=== PATIENT | male | born 1985 | race Caucasian/White ===

== ENCOUNTER 2016-05-03 21:45 | Emergency (ER) | payer OTHER, MEDICAID ==
[2016-05-03 21:57] VITALS: BP 149/91; PULSE 83; RESP 20; TEMP 98.8; O2SAT 93
--- NOTE | 2016-05-03 22:27 | EDPHY ---
H & P Stated Complaint: n/v, blood in stool Time Seen by Provider: 05/03/16 22:15 HPI/ROS: Chief complaint: Blood in stool, nausea, vomiting HPI: 31-year-old male with history of anxiety, schizoaffective disorder bipolar disorder presenting complaining of blood in his stool. Patient states for the last 2 days he has had some intermittent nausea and vomiting with some loose stools. Tonight he had 2 bowel movements with loose stools with blood in the toilet water. He has also been having some rectal discomfort last couple of days. He states he has a history of chronic nausea wakes up most morning still nauseated. He attributes this to his chronic medications. Denies any fevers or chills. No chest pain or shortness of breath. Some mild abdominal cramping but no pain. States that he is compliant with medications. Has a history of having blood in his stool in his past but has not seen his doctor for this. ROS: 10 point Review of Systems is negative except as noted in the HPI. Past medical history: Bipolar disorder, schizoaffective disorder, anxiety Social history: Positive for smoking, denies alcohol or other recreational drugs Physical exam: Gen: Awake, Alert, No Distress HEENT: Ears: Bilateral TMs are normal, no erythema or bulging. External auditory canals are clear. Nose: no rhinorrhea Eyes: PERRLA, EOMI Mouth: Moist mucosa Neck: Supple, no JVD Chest: nontender, lungs clear to auscultation Heart: S1, S2 normal, no murmur Abd: Soft, non-tender, no guarding Rectal: He does have visible hemorrhoids with no active bleeding, digital rectal exam is declined Back: no CVA tenderness, no midline tenderness Ext: no edema, non-tender Skin: no rash Neuro: CN II-XII intact, Sensation grossly intact, Strength 5/5 in bilateral upper and lower extremities - Personal History Tetanus Vaccine Date: 2014 - Medical/Surgical History Hx Asthma: Yes Hx Chronic Respiratory Disease: No Hx Diabetes: No Hx Cardiac Disease: No Hx Renal Disease: No Hx Cirrhosis: No Hx Alcoholism: Yes Hx HIV/AIDS: No Hx Splenectomy or Spleen Trauma: No Other PMH: BIPOLAR, ANXIETY, OCD, SCHIZOPREHIA, R. ankle fx, L. lower extremity fx. - Social History Smoking Status: Heavy smoker Constitutional: Initial Vital Signs Temperature (C) 37.1 C 05/03/16 21:55 Heart Rate 83 05/03/16 21:55 Respiratory Rate 20 05/03/16 21:55 Blood Pressure 149/91 H 05/03/16 21:55 O2 Sat (%) 93 05/03/16 21:55 O2 Delivery Mode Room Air Allergies/Adverse Reactions: bupropion HCl [From Wellbutrin] Allergy (Verified 05/03/16 21:55) Rash clozapine [From Clozaril] Allergy (Verified 05/03/16 21:55) Home Medications: Medication Instructions Recorded Atenolol [Tenormin] 25 mg PO BID 05/06/11 [place] Carbonate [[place] 900 mg PO BID 05/06/11 Carbonate Tab 300 mg (*)] OLANZAPINE [ZYPREXA 20 mg] 40 mg PO DAILY 05/06/11 QUETIAPINE FUMARATE [Seroquel] 50 mg PO TID 05/06/11 QUETIAPINE FUMARATE [Seroquel] 100 mg PO HS 05/06/11 Klonopin (RX) 12/11/12 Nexium 12/11/12 Albuterol 5 mg/ml INH [Proventil] 5 mg IH Q2-3PRN PRN #1 btl 03/13/13 Albuterol Hfa Anes Only [Proair 2 puffs IH QID #1 mdi 05/09/15 Hfa Icu (*)] Phenylephrine/Shk Lv/Mo/Pet,Wh 28 gm RC QID #1 ointtube 05/03/16 [Preparation H Oint] Medical Decision Making ED Course/Re-evaluation: Healthy 31-year-old male with rectal discomfort, loose stools and 2 episodes of blood in his stool this evening. He is hemodynamically normal. He is otherwise well-appearing. Abdominal exam is soft and benign. He is not feeling lightheaded or syncopal. He does have hemorrhoids as a source of bleeding. There is no other evidence of acute active GI bleed. He is also complaining of worsening nausea for the last couple of days with vomiting. Will give him a to go pack of Zofran, instructions for Sitz bath as and Anusol. He will follow up with his physician, Dr. Mendoza and 3 or 4 days for re- evaluation. Departure - Departure Disposition: Home, Routine, Self-Care Clinical Impression: Vomiting, Hemorrhoids Condition: Good Instructions: Hemorrhoids (ED), Acute Nausea and Vomiting (ED) Additional Instructions: Follow up with primary care physician on Friday. Return emergency depart for increasing bleeding, pain, worsening nausea, vomiting, abdominal pain, or any other concerns. Referrals: Alexus Mendoza MD [Primary Care Provider] - As per Instructions Prescriptions: Phenylephrine/Shk Lv/Mo/Pet,Wh [Preparation H Oint] 28 gm RC QID #1 ointtube
[2016-05-03] MEDS ORDERED: ONDANSETRON 4MG PREPACK#2 BTL TAKEHOME ONE (22:31)
== END 2016-05-03 22:42 | disposition home or self-care (01) ==
DX: K64.9 Unspecified hemorrhoids (principal); R11.10 Vomiting, unspecified; F17.200 Nicotine dependence, unspecified, uncomplicated; J45.909 Unspecified asthma, uncomplicated

== ENCOUNTER 2016-05-26 21:37 | Emergency (ER) | payer OTHER, MEDICAID ==
[2016-05-26 21:52] VITALS: BP 133/87; PULSE 79; RESP 16; TEMP 98.8; O2SAT 95
--- NOTE | 2016-05-26 22:21 | EDPHY ---
H & P Smoking Status: Heavy smoker Time Seen by Provider: 05/26/16 22:10 HPI/ROS: CHIEF COMPLAINT: Right calf pain x4 hours HISTORY OF PRESENT ILLNESS: 31-year-old male with no prior history of thromboembolic disorder complaining of 4 hours of atraumatic right calf pain and cramping. Call sooner sign recommended he come to the ER for evaluation. No discoloration. He was not performing physical activity when this occurred. No back pain. normal temperature. No chest pain. No dyspnea. PHYSICAL EXAM (Prior to examination, patient consented to physical exam, hands were washed and my usual and customary physical exam procedures followed) 1) GENERAL: Well-developed, well-nourished, alert and oriented. Appears to be in no acute distress. 2) HEAD: Normocephalic 3) HEENT: sclera anicteric 4) LUNGS: Breathing comfortably. 5) SKIN: normal coloration 6) MUSCULOSKELETAL: right lower extremity has no asymmetry, no tenderness, negative Homans, no palpable cord, soft compartments, DP PT pulses present and brisk, normal color normal temperature distally and the remainder of the lower extremity. 7) NEUROLOGIC: Full sensation distally DIFFERENTIAL DIAGNOSIS: in no particular include but limited to compartment syndrome, DVT, arterial thrombus, cellulitis, muscle strain (Evelyne,Bertha Danisha) Constitutional: Initial Vital Signs Temperature (C) 37.1 C 05/26/16 21:48 Heart Rate 79 05/26/16 21:48 Respiratory Rate 16 05/26/16 21:48 Blood Pressure 133/87 H 05/26/16 21:48 O2 Sat (%) 95 05/26/16 21:48 O2 Delivery Mode Room Air Allergies/Adverse Reactions: bupropion HCl [From Wellbutrin] Allergy (Verified 05/03/16 21:55) Rash clozapine [From Clozaril] Allergy (Verified 05/03/16 21:55) Home Medications: Medication Instructions Recorded Atenolol [Tenormin] 25 mg PO BID 05/06/11 [place] Carbonate [[place] 900 mg PO BID 05/06/11 Carbonate Tab 300 mg (*)] OLANZAPINE [ZYPREXA 20 mg] 40 mg PO DAILY 05/06/11 QUETIAPINE FUMARATE [Seroquel] 50 mg PO TID 05/06/11 QUETIAPINE FUMARATE [Seroquel] 100 mg PO HS 05/06/11 Klonopin (RX) 12/11/12 Nexium 12/11/12 Albuterol 5 mg/ml INH [Proventil] 5 mg IH Q2-3PRN PRN #1 btl 03/13/13 Albuterol Hfa Anes Only [Proair 2 puffs IH QID #1 mdi 05/09/15 Hfa Icu (*)] Phenylephrine/Shk Lv/Mo/Pet,Wh 28 gm RC QID #1 ointtube 05/03/16 [Preparation H Oint] MDM/Departure - MDM Diagnostics: 10:55 p.m.: Ultrasound lower extremity negative for DVT interpreted by radiologist. Images reviewed by myself. (Bertha Stubbs) ED Course/Re-evaluation: 10:50 p.m.: Re-evaluation. Patient is neurovascularly intact, soft compartments,. Normal coloration. Normal temperature. Doubt DVT. Doubt arterial occlusion. Doubt compartment syndrome. Plan will be discharge. Follow up with primary care provider. Usual and customary orthopedic precautions instructions provided. He feels comfortable being discharged. ( Bertha Stubbs) PHYSICIAN DOCUMENTATION: The patient was evaluated and managed by the Physician Storeroom Attendant. My co- signature indicates that I have reviewed this chart and I agree with the findings and plan of care as documented. I am the secondary supervising physician. (Chioma Chandra) - Depart Disposition: Home, Routine, Self-Care Clinical Impression: Right calf pain Condition: Good Instructions: Leg Cramps (ED) Additional Instructions: Call 911 if you developed worsening calf pain, if you develop discoloration or change in temperature of your extremity or any other symptoms that concern you. Referrals: Alexus Mendoza MD [Primary Care Provider] - 1-2 days without fail
== END 2016-05-26 23:06 | disposition home or self-care (01) ==
DX: M79.661 Pain in right lower leg (principal)

== ENCOUNTER 2016-06-30 10:18 | Inpatient (IN) | payer OTHER, MEDICAID ==
[2016-06-30] MEDS ORDERED: methylPREDNISolone SOD SUCC 125 MG/2 ML VIAL IVP ONE (10:24)
[2016-06-30] MEDS ORDERED: IPRATROPIUM/ALBUTEROL 3 ML DEYVIAL IH ONE (10:24)
--- NOTE | 2016-06-30 10:29 | EDPHY ---
H & P Source: Patient, EMS Exam Limitations: No limitations - Personal History Tetanus Vaccine Date: 2014 - Medical/Surgical History Hx Asthma: Yes Hx Chronic Respiratory Disease: No Hx Diabetes: No Hx Cardiac Disease: No Hx Renal Disease: No Hx Cirrhosis: No Hx Alcoholism: Yes Hx HIV/AIDS: No Hx Splenectomy or Spleen Trauma: No Other PMH: BIPOLAR, ANXIETY, OCD, SCHIZOPREHIA, R. ankle fx, L. lower extremity fx. - Social History Smoking Status: Heavy smoker HPI/ROS: CHIEF COMPLAINT: Shortness of breath, cough HISTORY OF PRESENT ILLNESS: Patient complains of cough, shortness of breath and wheezing. This started yesterday after cleaning his toilet with coring cleanser. He feels that it turned into infection after initial onset of coughing. Symptoms have been persistent. [id number]. Some hemoptysis. No abdominal pain. Some chest pain with this. Some shortness of breath. No fever. No headache. No neck pain or stiffness. He has also had some chronic, mild blood in the stools. No other associated complaints or modifying factors. He arrives by EMS and is seen at time of arrival. The administer DuoNeb but no other medications. He was reportedly 91% on room air. He was 96% during the breathing treatment on 8 L. REVIEW OF SYSTEMS: Ten systems reviewed and are negative unless otherwise noted in the HPI PERTINENT MEDICAL HISTORY: Asthma, smoker EXAMINATION General Appearance: Alert, no distress Head: normocephalic, atraumatic Eyes: Pupils equal and round, no conjunctival pallor or injection ENT, Mouth: Mucous membranes moist. Uvula midline. No erythema or edema. Neck: Normal inspection, supple, non-tender. No meningismus or rigidity Respiratory: Tachypneic. Scattered rhonchi and wheezing throughout. Minimal crackles. No retractions or distress. Cardiovascular: Tachycardic rate 104 beats per minute. Regular rhythm. No murmur. Gastrointestinal: obese Abdomen is soft and nontender. No tympany rigidity. Neurological: GCS 15. A&O, nonfocal, normal gait Skin: Warm and dry, no rash. No petechiae or purpura. Extremities: Nontender, no pedal edema Psychiatric: Mood and affect normal DIFFERENTIAL DIAGNOSES: Including but not limited to asthma exacerbation, community-acquired pneumonia, influenza, bronchitis, viral infection, PE MDM: 10:20 a.m. Shortness of breath, cough, hemoptysis. Patient arrived by EMS for reports of asthma exacerbation. He was tachycardic and tachypneic, thus I have ordered blood cultures, lactic acid, chest x-ray and influenza test. He is hemodynamically stable in no acute distress. 11:03 a.m. Chest x-ray as read by me is these more suggestive of bronchitis without definite pneumonia. Laboratory studies revealed leukocytosis. Lactic acid is upper limits of normal. Vital signs remained stable with mild hypoxia on room air. 11:30 a.m. Chest x-ray does not reveal a definite pneumonia. However, he is hypoxic on room air, the lowest value noted was 86%. He does have leukocytosis and mild tachycardia. He was also tachypnea time arrival. Examination is consistent with pneumonia. With his vital signs and findings, he does meet criteria for severe sepsis to the lactic acid greater than 2.0. There is no septic shock. Due to this, I will proceed with admission for asthma exacerbation with the possibility of atypical pneumonia. 11:30 a.m. I have discussed the case with the hospitalist and that. She will admit the patient to Dr. Vale. We will repeat lactic acid following the IV fluid bolus. SUPERVISION: (Ryder Murcia) Constitutional: Initial Vital Signs Temperature (C) 36.8 C 06/30/16 10:18 Heart Rate 102 H 06/30/16 10:18 Respiratory Rate 22 H 06/30/16 10:18 Blood Pressure 126/69 H 06/30/16 10:18 O2 Sat (%) 92 06/30/16 10:18 O2 Delivery Mode Room Air O2 (L/minute) 2 Allergies/Adverse Reactions: bupropion HCl [From Wellbutrin] Allergy (Verified 06/30/16 10:26) Rash clozapine [From Clozaril] Allergy (Verified 06/30/16 10:26) Home Medications: Medication Instructions Recorded Atenolol [Tenormin] 25 mg PO BID 05/06/11 [place] Carbonate [[place] 900 mg PO BID 05/06/11 Carbonate Tab 300 mg (*)] OLANZAPINE [ZYPREXA 20 mg] 40 mg PO DAILY 05/06/11 QUETIAPINE FUMARATE [Seroquel] 50 mg PO TID 05/06/11 QUETIAPINE FUMARATE [Seroquel] 100 mg PO HS 05/06/11 Klonopin (RX) 12/11/12 Nexium 12/11/12 Albuterol 5 mg/ml INH [Proventil] 5 mg IH Q2-3PRN PRN #1 btl 03/13/13 Albuterol Hfa Anes Only [Proair 2 puffs IH QID #1 mdi 05/09/15 Hfa Icu (*)] Phenylephrine/Shk Lv/Mo/Pet,Wh 28 gm RC QID #1 ointtube 05/03/16 [Preparation H Oint] AMITRIPTYLINE HCL 06/30/16 ANTABUSE 06/30/16 Trileptal 06/30/16 Zyprexa 06/30/16 Medical Decision Making - Diagnostics Imaging Results: Imaging Impressions Chest X-Ray 06/30/16 10:25 Impression: Findings consistent with airways disease are noted with no superimposed pneumonia identified. Other Provider: PHYSICIAN DOCUMENTATION: The patient was evaluated and managed by the Physician Associate Trainer. My co- signature indicates that I have reviewed this chart and I agree with the findings and plan of care as documented. I am the secondary supervising physician. (Alfonso Medley) - Data Points Laboratory Results: Laboratory Results 06/30/16 10:20 06/30/16 10:20 06/30/16 06/30/16 06/30/16 10:31 10:25 10:20 WBC RBC Hgb Hct MCV MCH MCHC RDW Plt Count MPV Neut % (Auto) Lymph % (Auto) [place] % (Auto) Eos % (Auto) Baso % (Auto) Nucleat RBC Rel Count Absolute Neuts (auto) Absolute Lymphs (auto) Absolute Monos (auto) Absolute Eos (auto) Absolute Basos (auto) Absolute Nucleated RBC Immature Gran % Immature Gran # PT INR APTT D-Dimer VBG Lactic Acid 2.1 mmol/L mmol/L (0.7-2.1) Sodium 137 mEq/L mEq/L (134-144) Potassium 4.4 mEq/L mEq/L (3.5-5.2) Chloride 105 mEq/L mEq/L (97-110) Carbon Dioxide 21 mEq/l L mEq/l (22-31) Anion Gap 11 mEq/L mEq/L (8-16) BUN 9 mg/dL mg/dL (7-23) Creatinine 1.1 mg/dL mg/dL (0.7-1.3) Estimated GFR > 60 Glucose 114 mg/dL H mg/dL (70-100) Calcium 10.0 mg/dL mg/dL (8.5-10.4) Total Bilirubin 0.7 mg/dL mg/dL (0.1-1.4) Troponin I < 0.012 ng/mL ng/mL (0-0.034) Influenza Typ A,B (DFA) NEGATIVE FOR FLU (NEGATIVE) 06/30/16 06/30/16 10:20 10:20 WBC 19.78 10^3/uL H 10^3/uL (3.80-9.50) RBC 5.08 10^6/uL 10^6/uL (4.40-6.38) Hgb 13.2 g/dL L g/dL (13.7-17.5) Hct 42.1 % % (40.0-51.0) MCV 82.9 fL fL (81.5-99.8) MCH 26.0 pg L pg (27.9-34.1) MCHC 31.4 g/dL L g/dL (32.4-36.7) RDW 16.7 % H % (11.5-15.2) Plt Count 273 10^3/uL 10^3/uL (150-400) MPV 10.4 fL fL (8.7-11.7) Neut % (Auto) 88.9 % H % (39.3-74.2) Lymph % (Auto) 2.8 % L % (15.0-45.0) [place] % (Auto) 5.8 % % (4.5-13.0) Eos % (Auto) 1.0 % % (0.6-7.6) Baso % (Auto) 0.4 % % (0.3-1.7) Nucleat RBC Rel Count 0.0 % % (0.0-0.2) Absolute Neuts (auto) 17.58 10^3/uL H 10^3/uL (1.70-6.50) Absolute Lymphs (auto) 0.56 10^3/uL L 10^3/uL (1.00-3.00) Absolute Monos (auto) 1.15 10^3/uL H 10^3/uL (0.30-0.80) Absolute Eos (auto) 0.20 10^3/uL 10^3/uL (0.03-0.40) Absolute Basos (auto) 0.08 10^3/uL 10^3/uL (0.02-0.10) Absolute Nucleated RBC 0.00 10^3/uL 10^3/uL (0-0.01) Immature Gran % 1.1 % % (0.0-1.1) Immature Gran # 0.21 10^3/uL H 10^3/uL (0.00-0.10) PT 12.5 SEC SEC (12.0-15.0) INR 0.94 (0.83-1.16) APTT 30.7 SEC SEC (23.0-38.0) D-Dimer < 0.27 ug/mLFEU ug/mLFEU (0.00-0.50) VBG Lactic Acid Sodium Potassium Chloride Carbon Dioxide Anion Gap BUN Creatinine Estimated GFR Glucose Calcium Total Bilirubin Troponin I Influenza Typ A,B (DFA) Medications Given: Discontinued Medications Albuterol/Ipratropium (Duoneb) 3 ml IH EDNOW ONE Stop: 06/30/16 10:25 Last Admin: 06/30/16 10:34 Dose: 3 ml Sodium Chloride (Ns) 1,000 mls @ 0 mls/hr IV ONCE ONE PRN Reason: Wide Open Stop: 06/30/16 11:04 Last Admin: 06/30/16 11:09 Dose: 1,000 mls Methylprednisolone Sodium Succinate (Solu-Medrol) 125 mg IVP EDNOW ONE Stop: 06/30/16 10:25 Last Admin: 06/30/16 10:35 Dose: 125 mg
[2016-06-30 10:35] LABS: % IMMATURE GRANULYOCYTES 1.1 % (0.0-1.1); ABSOLUTE IMMATURE GRANULOCYTES 0.21 10^3/uL (0.00-0.10); ADD DIFF? NO; ADD MORPH? NO; ADD SCAN? NO; ATYPICAL LYMPHOCYTE FLAG 0 (0-99); FRAGMENT RBC FLAG 0 (0-99); HEMATOCRIT 42.1 % (40.0-51.0); HEMOGLOBIN 13.2 g/dL (13.7-17.5); LEFT SHIFT FLG 10 (0-99); LIPEMIA HEMOLYSIS FLAG 80 (0-99); MEAN CELL HEMOGLOBIN CONCENTR. 31.4 g/dL (32.4-36.7); MEAN CELL VOLUME 82.9 fL (81.5-99.8); MEAN PLATELET VOLUME 10.4 fL (8.7-11.7); PLATELET CLUMPS FLAG 40 (0-99); PLATELET COUNT 273 10^3/uL (150-400); RED BLOOD CELL COUNT 5.08 10^6/uL (4.40-6.38); RED CELL DISTRIBUTION WIDTH 16.7 % (11.5-15.2)
--- NOTE | 2016-06-30 10:38 | CPEKG ---
Heart Rate: 98 RR Interval: 612 P-R Interval: 180 QRSD Interval: 94 QT Interval: 368 QTC Interval: 470 P Minetto: 73 QRS Minetto: 61 T Wave Minetto: 36 EKG Severity - BORDERLINE ECG - EKG Impression: SINUS RHYTHM Electronically Signed By: Alfonso Medley 30-Jun-2016 13:40:21
[2016-06-30 10:41] LABS: INR 0.94 (0.83-1.16); PROTIME(PATIENT) 12.5 SEC (12.0-15.0)
[2016-06-30 10:42] LABS: APTT 30.7 SEC (23.0-38.0)
[2016-06-30 10:54] LABS: ANION GAP 11 mEq/L (8-16); BILIRUBIN,TOTAL 0.7 mg/dL (0.1-1.4); CARBON DIOXIDE 21 mEq/l (22-31); CHLORIDE 105 mEq/L (97-110); CREATININE 1.1 mg/dL (0.7-1.3); GLOMERULAR FILTRATION RATE > 60; GLUCOSE 114 mg/dL (70-100); POTASSIUM 4.4 mEq/L (3.5-5.2); SODIUM 137 mEq/L (134-144)
[2016-06-30] MEDS ORDERED: NS 1,000 ML IV ONE ×2 (11:03→11:35)
[2016-06-30 11:05] LABS: TROPONIN I < 0.012 ng/mL (0-0.034)
[2016-06-30 11:35] LABS: LACGHOST ORDER
[2016-06-30] MEDS ORDERED: AZITHROMYCIN IV 500 MG in D5W 250 ML IV ONE (11:37)
[2016-06-30] MEDS ORDERED: MAGNESIUM SULF 2 GM/WATER 50 ML IV ONE (13:01)
[2016-06-30] MEDS ORDERED: ONDANSETRON 4 MG/2 ML VIAL IVP PRN (13:04)
[2016-06-30] MEDS ORDERED: LORazepam 2 MG/ML INJ IVP PRN (13:04)
[2016-06-30] MEDS ORDERED: LORazepam 0.5 MG TAB PO PRN (13:04)
[2016-06-30] MEDS ORDERED: ACETAMINOPHEN 325 MG TAB PO PRN (13:04)
[2016-06-30] MEDS ORDERED: oxyCODONE IR 5 MG TAB PO PRN (13:04)
[2016-06-30] MEDS ORDERED: ALBUTEROL 3 ML DEYVIAL IH PRN (13:06)
[2016-06-30] MEDS: guaiFENesin 600 MG TAB.ER PO SCH ×2 (13:24→21:08)
--- NOTE | 2016-06-30 13:55 | GHP ---
[f rep st] HISTORY AND PHYSICAL DATE OF ADMISSION: 06/30/2016 CHIEF COMPLAINT: Shortness of breath. HISTORY OF PRESENT ILLNESS: This is a 31-year-old man with a history of severe psychiatric disease who presents with shortness of breath. This started yesterday, when he was cleaning his toilet with a chlorine-based venetian blind cleaner. He does have a history of asthma but has never been hospitalized for breathing problems before. He has used his inhaler without improvement. He has been coughing so much that he actually threw up in his own bed. He complains of wheezing, some pleuritic pain with his coughing. He has had no fever since this began. PAST MEDICAL/SURGICAL HISTORY: 1. Asthma. 2. Bipolar disorder. 3. Schizophrenia. 4. Anxiety. 5. Hypertension. MEDICATIONS: Please see medication reconciliation. ALLERGIES: Wellbutrin and clozapine. FAMILY HISTORY: No asthma. SOCIAL HISTORY: He currently smokes about a pack and a half a day. He does not drink alcohol. He lives with his sister. REVIEW OF SYSTEMS: Ten-point review of systems is conducted and is negative except per HPI. PHYSICAL EXAMINATION: VITAL SIGNS: Blood pressure 114/59. Heart rate is 94, respiration rate 20, satting 92% on 2 L. Initially, it was 86% on room air. Temperature is 36.7. GENERAL: The patient appears in moderate respiratory distress and is quite tachypneic. He appears somewhat unkempt and uncomfortable. HEENT: Shows him to be normocephalic, atraumatic. He has a face mask on. CARDIOVASCULAR: Shows him to be borderline tachycardic. There are no murmurs, rubs, or gallops. PULMONARY: Shows diminished breath sounds bilaterally. There are some scant wheezes, the bilateral upper lobes. There are no rhonchi. ABDOMEN: Soft, nontender, nondistended. SKIN: No rash. : No Cid. NEUROLOGIC: Shows him to be alert and oriented x3, moving all extremities. PSYCHIATRIC: Shows him to be mildly anxious appearing but he is otherwise appropriate and has a normal mood. LABS: White count of 19.7 with 88% neutrophils. INR is normal. D-dimer is negative. Lactate is 2.1. Bicarb is 21. Troponin is negative. Influenza DFA is negative. DATA: 1. I personally viewed and interpreted his EKG. This shows sinus rhythm. His QT is borderline prolonged. This is borderline tachycardic but a normal EKG otherwise. 2. Chest x-ray, which I also personally viewed and interpreted, shows prominent airway markings. I do not see any distinct infiltrates. Does have some bronchial cuffing. IMPRESSION AND PLAN: This is a 31-year-old man with asthma and schizophrenia who presents with likely asthma exacerbation. 1. Asthma exacerbation: Likely secondary to chlorine exposure yesterday. He is quite dyspneic when I am seeing him, with quite poor air movement throughout. Because of this, I agree with continuing antibiotics, Rocephin and doxycycline (his QT is borderline prolonged), in addition to steroids. I have written for him to get magnesium, DuoNeb scheduled, inhalers as needed, and guaifenesin. We will place him on continuous pulse ox. I discussed my concern with steroids with him, specifically, causing worsening psychosis or anxiety. I have added Ativan in addition to his scheduled Klonopin. I think the risk is worth it, given the significance of this exacerbation. 2. Leukocytosis: Reviewing his chart, this is more chronic than acute. He only has 1 white count in normal range in the last 5 years in our system. Potentially, this is medication related but recommend that he follow up with a vp cardiovascular on discharge. 3. Schizophrenia/bipolar/anxiety: We will continue his relatively high doses of mood stabilizers and antipsychotics. Certainly, continue his Klonopin and I have added as-needed Ativan p.o. and IV if his symptoms should worsen. He tells me that he has recently had quite good control of his psychiatric disorders. He currently has good insight into his psychiatric illness. 4. Hypertension: Continue his atenolol for now. 5. Venous thromboembolism risk. I think he is relatively low risk, given his age. If he stays bedbound for a prolonged period, we will start pharmacologic prophylaxis. DISPOSITION: I anticipate that he will need greater than 2 midnights for this exacerbation to resolve. He is admitted to inpatient status. /[id number]/MODL MTDD
[2016-06-30] MEDS ORDERED: HYDROcodone/CPM TUSSIONEX 5 ML UDSYR PO PRN (14:06)
[2016-06-30 14:37] LABS: LITHIUM 1.2 mEq/L (0.6-1.2)
[2016-06-30] MEDS ORDERED: IPRATROPIUM/ALBUTEROL 3 ML DEYVIAL ONE (15:46)
[2016-06-30] MEDS: IPRATROPIUM/ALBUTEROL 3 ML DEYVIAL IH SCH ×2 (15:51→20:01)
[2016-06-30] MEDS: methylPREDNISolone SOD SUCC 40 MG/ML VIAL IVP SCH ×2 (17:42→23:19)
[2016-06-30] MEDS: CALCIUM CARBONATE 500 MG CHEWABLE TAB PO PRN (18:39)
[2016-06-30] MEDS: DOXYCYCLINE INJ 100 MG in NS 250 ML IV SCH (21:07)
[2016-06-30] MEDS: OXcarbazepine 300 MG TAB PO SCH (21:08)
[2016-06-30] MEDS: clonazePAM 1 MG TAB PO SCH (21:08)
[2016-06-30] MEDS: LITHIUM CARBONATE ER 300 MG TAB PO SCH (21:08)
[2016-06-30] MEDS: OLANZapine 10 MG TAB PO SCH (22:45)
[2016-07-01] MEDS: methylPREDNISolone SOD SUCC 40 MG/ML VIAL IVP SCH ×4 (05:01→18:02)
[2016-07-01] MEDS: CALCIUM CARBONATE 500 MG CHEWABLE TAB PO PRN ×2 (05:01→08:59)
[2016-07-01 05:30] LABS: % IMMATURE GRANULYOCYTES 0.9 % (0.0-1.1); ABSOLUTE IMMATURE GRANULOCYTES 0.15 10^3/uL (0.00-0.10); ADD DIFF? NO; ADD MORPH? NO; ADD SCAN? NO; ATYPICAL LYMPHOCYTE FLAG 0 (0-99); FRAGMENT RBC FLAG 0 (0-99); HEMATOCRIT 40.7 % (40.0-51.0); HEMOGLOBIN 12.5 g/dL (13.7-17.5); LEFT SHIFT FLG 0 (0-99); LIPEMIA HEMOLYSIS FLAG 80 (0-99); MEAN CELL HEMOGLOBIN 26.7 pg (27.9-34.1); MEAN CELL HEMOGLOBIN CONCENTR. 30.7 g/dL (32.4-36.7); MEAN CELL VOLUME 86.8 fL (81.5-99.8); MEAN PLATELET VOLUME 9.9 fL (8.7-11.7); PLATELET CLUMPS FLAG 0 (0-99); PLATELET COUNT 264 10^3/uL (150-400); RED BLOOD CELL COUNT 4.69 10^6/uL (4.40-6.38); RED CELL DISTRIBUTION WIDTH 17.6 % (11.5-15.2)
[2016-07-01 05:45] LABS: ALANINE AMINOTRANSFERASE 46 IU/L (21-72); ALBUMIN 3.9 g/dL (3.5-5.0); ALKALINE PHOSPHATASE 66 IU/L (38-126); ANION GAP 11 mEq/L (8-16); ASPARTATE AMINOTRANSFERASE 25 IU/L (17-59); BILIRUBIN,TOTAL 0.4 mg/dL (0.1-1.4); CALCIUM 9.3 mg/dL (8.5-10.4); CARBON DIOXIDE 24 mEq/l (22-31); CHLORIDE 111 mEq/L (97-110); GLOMERULAR FILTRATION RATE > 60; GLUCOSE 150 mg/dL (70-100); POTASSIUM 4.9 mEq/L (3.5-5.2); SODIUM 146 mEq/L (134-144); TOTAL PROTEIN 6.7 g/dL (6.3-8.2)
[2016-07-01] MEDS: IPRATROPIUM/ALBUTEROL 3 ML DEYVIAL IH SCH ×3 (06:33→18:14)
--- NOTE | 2016-07-01 08:26 | HOSPPROG ---
Hospitalist Progress Note Assessment/Plan: # acute hypoxic resp failure - overall better today # asthma with acute exacerbation - cont abx, BDs, mucinex, steroids (taper dose today) # tobacco use - interested in cessation; we spent 5 mins discussing strategies - will start wellbutrin - allergies reviewed with patient; mild and unclear if truly attributable to wellbutrin # fever - unclear what caused this? - BCx NGTD - check UA, repeat CXR # leukocytosis - more chronic than acute # mild hyperNa - possibly d/t DI? - recheck BMP tomorrow # hyperglycemia - mild now, likely d/t steroids # elevated lactate - recheck today # bipolar/schizophrenia/anxiety - well controlled currently, follow closely while on steroids # GERD - will trial protonix Subjective: breathing feels better; interested in tobacco cessation Objective: Vital Signs Temp Pulse Resp BP Pulse Ox 36.8 C 83 20 128/61 H 99 07/01/16 03:25 07/01/16 06:33 07/01/16 06:33 07/01/16 03:25 07/01/16 06:33 Laboratory Results 07/01/16 05:21 07/01/16 05:21 06/30/16 07/01/16 07/02/16 05:59 05:59 05:59 Intake Total 5300 Balance 5300 PT 12.5 SEC (12.0-15.0) 06/30/16 10:20 INR 0.94 (0.83-1.16) 06/30/16 10:20 - Physical Exam Constitutional: unkempt Cardiovascular: regular rate and rhythym, no murmur, rub, or gallop Respiratory: expiratory wheeze, inspiratory crackles, respiratory distress (mild ), rhonchi (diffuse) Gastrointestinal: normoactive bowel sounds, soft, non-tender abdomen, no palpable masses ICD10 Worksheet Patient Problems: Problems Problem Status Onset Schizoaffective disorder Active Obsessive-compulsive disorder Active Panic attack Active Alcohol abuse Active Nicotine dependence Active
[2016-07-01 08:53] LABS: COLOR PALE YELLOW; LEUKOCYTE ESTERASE,URINE NEGATIVE (NEGATIVE); NITRITE,URINE NEGATIVE (NEGATIVE)
[2016-07-01] MEDS: PANTOPRAZOLE SODIUM 40 MG TAB PO SCH (08:58)
[2016-07-01] MEDS ORDERED: OLANZAPINE 40 MG PO SCH (09:00)
[2016-07-01] MEDS ORDERED: clonazePAM 1 MG TAB PO SCH (09:00)
[2016-07-01] MEDS ORDERED: OLANZapine 10 MG TAB PO SCH (09:00)
[2016-07-01] MEDS: guaiFENesin 600 MG TAB.ER PO SCH ×2 (09:15→20:40)
[2016-07-01] MEDS: OLANZapine 10 MG TAB PO SCH ×2 (09:17→20:39)
[2016-07-01] MEDS: ATENOLOL 100 MG TAB PO SCH (09:18)
[2016-07-01] MEDS: ASPIRIN EC 325 MG TAB PO SCH (09:18)
[2016-07-01] MEDS: OXcarbazepine 300 MG TAB PO SCH ×2 (09:19→20:39)
[2016-07-01] MEDS: DISULFIRAM 250 MG TAB PO SCH (09:19)
[2016-07-01] MEDS: LITHIUM CARBONATE 300 MG TAB PO SCH (09:20)
[2016-07-01] MEDS: buPROPion 75 MG TAB PO SCH ×2 (09:24→20:40)
[2016-07-01] MEDS: ONDANSETRON DISINTEGRATING 4 MG TAB PO PRN (09:26)
[2016-07-01] MEDS: DOXYCYCLINE INJ 100 MG in NS 250 ML IV SCH ×2 (10:54→20:43)
[2016-07-01] MEDS: NICOTINE POLACRILEX 2 MG GUM B PRN ×2 (18:02→20:48)
[2016-07-01] MEDS: LITHIUM CARBONATE ER 300 MG TAB PO SCH (20:39)
[2016-07-01] MEDS: clonazePAM 1 MG TAB PO SCH (20:40)
[2016-07-02] MEDS: methylPREDNISolone SOD SUCC 40 MG/ML VIAL IVP SCH ×5 (00:18→23:24)
[2016-07-02] MEDS: CALCIUM CARBONATE 500 MG CHEWABLE TAB PO PRN ×2 (00:26→09:26)
[2016-07-02] MEDS: IPRATROPIUM/ALBUTEROL 3 ML DEYVIAL IH SCH ×5 (04:34→23:29)
[2016-07-02 07:47] LABS: % IMMATURE GRANULYOCYTES 1.5 % (0.0-1.1); ABSOLUTE IMMATURE GRANULOCYTES 0.28 10^3/uL (0.00-0.10); ADD DIFF? NO; ADD MORPH? NO; ADD SCAN? NO; ATYPICAL LYMPHOCYTE FLAG 0 (0-99); FRAGMENT RBC FLAG 0 (0-99); HEMATOCRIT 39.9 % (40.0-51.0); HEMOGLOBIN 12.1 g/dL (13.7-17.5); LEFT SHIFT FLG 10 (0-99); LIPEMIA HEMOLYSIS FLAG 80 (0-99); MEAN CELL HEMOGLOBIN CONCENTR. 30.3 g/dL (32.4-36.7); MEAN CELL VOLUME 85.8 fL (81.5-99.8); MEAN PLATELET VOLUME 10.2 fL (8.7-11.7); PLATELET CLUMPS FLAG 0 (0-99); PLATELET COUNT 265 10^3/uL (150-400); RED BLOOD CELL COUNT 4.65 10^6/uL (4.40-6.38); RED CELL DISTRIBUTION WIDTH 17.8 % (11.5-15.2)
[2016-07-02 08:34] LABS: ANION GAP 12 mEq/L (8-16); CALCIUM 9.5 mg/dL (8.5-10.4); CARBON DIOXIDE 21 mEq/l (22-31); CHLORIDE 107 mEq/L (97-110); GLOMERULAR FILTRATION RATE > 60; GLUCOSE 149 mg/dL (70-100); POTASSIUM 4.7 mEq/L (3.5-5.2); SODIUM 140 mEq/L (134-144)
[2016-07-02] MEDS ORDERED: clonazePAM 1 MG TAB PO PRN (09:00)
[2016-07-02] MEDS: ATENOLOL 100 MG TAB PO SCH (09:25)
[2016-07-02] MEDS: OLANZapine 10 MG TAB PO SCH ×2 (09:25→21:12)
[2016-07-02] MEDS: DISULFIRAM 250 MG TAB PO SCH (09:26)
[2016-07-02] MEDS: LITHIUM CARBONATE 300 MG TAB PO SCH (09:26)
[2016-07-02] MEDS: clonazePAM 1 MG TAB PO SCH ×2 (09:27→21:11)
[2016-07-02] MEDS: ASPIRIN EC 325 MG TAB PO SCH (09:27)
[2016-07-02] MEDS: guaiFENesin 600 MG TAB.ER PO SCH ×2 (09:27→21:11)
[2016-07-02] MEDS: buPROPion 75 MG TAB PO SCH ×2 (09:27→21:12)
[2016-07-02] MEDS: OXcarbazepine 300 MG TAB PO SCH ×2 (09:27→21:12)
[2016-07-02] MEDS: PANTOPRAZOLE SODIUM 40 MG TAB PO SCH (09:27)
[2016-07-02] MEDS: DOXYCYCLINE INJ 100 MG in NS 250 ML IV SCH ×2 (09:28→21:13)
[2016-07-02] MEDS: NICOTINE POLACRILEX 2 MG GUM B PRN ×2 (14:46→21:49)
--- NOTE | 2016-07-02 17:05 | HOSPPROG ---
Hospitalist Progress Note Assessment/Plan: # acute hypoxic resp failure - overall better today; lungs still with significant rhonchi # asthma with acute exacerbation - cont abx (taper to doxy today), BDs, mucinex , steroids # tobacco use - interested in cessation; - will start wellbutrin - I placed a call to Dr Farooq, his outpatient psychiatrist, but I have not heard back # fever - unclear what caused this; has not recurred - BCx NGTD # leukocytosis - more chronic than acute # mild hyperNa - possibly d/t mild DI? resolved # hyperglycemia - mild now, likely d/t steroids # bipolar/schizophrenia/anxiety - well controlled currently, follow closely while on steroids # GERD - will trial protonix # dispo - likely to home tomorrow Subjective: breathing feels better but not back to normal Objective: Vital Signs Temp Pulse Resp BP Pulse Ox 36.4 C 74 20 126/63 H 92 07/02/16 16:00 07/02/16 16:00 07/02/16 16:00 07/02/16 16:00 07/02/16 16:00 Laboratory Results 07/02/16 07:30 07/02/16 07:30 07/01/16 07/02/16 07/03/16 05:59 05:59 05:59 Intake Total 5300 3500 Output Total 3450 Balance 5300 50 PT 12.5 SEC (12.0-15.0) 06/30/16 10:20 INR 0.94 (0.83-1.16) 06/30/16 10:20 - Physical Exam Constitutional: unkempt Cardiovascular: regular rate and rhythym, no murmur, rub, or gallop Respiratory: expiratory wheeze ( diffuse), respiratory distress ( mild), rhonchi ( diffuse), No inspiratory crackles Gastrointestinal: normoactive bowel sounds, soft, non-tender abdomen, no palpable masses ICD10 Worksheet Patient Problems: Problems Problem Status Onset Schizoaffective disorder Active Obsessive-compulsive disorder Active Panic attack Active Alcohol abuse Active Nicotine dependence Active
[2016-07-02] MEDS: LITHIUM CARBONATE ER 300 MG TAB PO SCH (21:12)
[2016-07-03] MEDS: methylPREDNISolone SOD SUCC 40 MG/ML VIAL IVP SCH (05:46)
[2016-07-03] MEDS: NICOTINE POLACRILEX 2 MG GUM B PRN ×2 (05:52→10:59)
[2016-07-03] MEDS: IPRATROPIUM/ALBUTEROL 3 ML DEYVIAL IH SCH (05:59)
[2016-07-03 08:17] VITALS: BP 120/63; PULSE 68; RESP 20; TEMP 98.7; O2SAT 91
[2016-07-03] MEDS ORDERED: PNEUMOCOCCAL 0.5ML VACCINE VIAL IM ONE (08:46)
[2016-07-03] MEDS: DOXYCYCLINE INJ 100 MG in NS 250 ML IV SCH (08:47)
[2016-07-03] MEDS: clonazePAM 1 MG TAB PO SCH (08:52)
[2016-07-03] MEDS: LITHIUM CARBONATE 300 MG TAB PO SCH (08:52)
[2016-07-03] MEDS: ASPIRIN EC 325 MG TAB PO SCH (08:53)
[2016-07-03] MEDS: guaiFENesin 600 MG TAB.ER PO SCH (08:53)
[2016-07-03] MEDS: OLANZapine 10 MG TAB PO SCH (08:53)
[2016-07-03] MEDS: PANTOPRAZOLE SODIUM 40 MG TAB PO SCH (08:54)
[2016-07-03] MEDS: ATENOLOL 100 MG TAB PO SCH (08:54)
[2016-07-03] MEDS: OXcarbazepine 300 MG TAB PO SCH (08:54)
[2016-07-03] MEDS: buPROPion 75 MG TAB PO SCH (08:55)
[2016-07-03] MEDS: DISULFIRAM 250 MG TAB PO SCH (08:55)
[2016-07-03] MEDS ORDERED: predniSONE 20 MG TAB PO ONE (09:05)
--- NOTE | 2016-07-03 09:09 | HOSPPROG ---
Hospitalist Progress Note Assessment/Plan: 31 yo M w asthma flare presumed 2/2 chlorine exposure home today 5 days abx no steroids on dc > 30 minutes on dc see dc summary Subjective: on RA. feels well. ready for dc Objective: Vital Signs Temp Pulse Resp BP Pulse Ox 37.1 C 68 20 120/63 91 L 07/03/16 08:00 07/03/16 08:00 07/03/16 08:00 07/03/16 08:00 07/03/16 08:00 Laboratory Results 07/02/16 07:30 07/02/16 07:30 07/02/16 07/03/16 07/04/16 05:59 05:59 05:59 Intake Total 3500 Output Total 3450 Balance 50 PT 12.5 SEC (12.0-15.0) 06/30/16 10:20 INR 0.94 (0.83-1.16) 06/30/16 10:20 - Physical Exam Constitutional: no apparent distress, appears nourished, not in pain Eyes: PERRL, anicteric sclera Ears, Nose, Mouth, Throat: moist mucous membranes, hearing normal Cardiovascular: regular rate and rhythym, no murmur, rub, or gallop Respiratory: no respiratory distress, other (good air movement, scattered rhonchi, no wheeze) Gastrointestinal: normoactive bowel sounds, soft, non-tender abdomen Genitourinary: No ebyer in urethra Skin: warm, normal color Musculoskeletal: full muscle strength, no muscle tenderness Neurologic: AAOx3, sensation intact bilaterally Psychiatric: interacting appropriately, not anxious ICD10 Worksheet Patient Problems: Problems Problem Status Onset Alcohol abuse Active Nicotine dependence Active Obsessive-compulsive disorder Active Panic attack Active Schizoaffective disorder Active
[2016-07-03] MEDS: ONDANSETRON DISINTEGRATING 4 MG TAB PO PRN (09:37)
--- NOTE | 2016-07-03 09:48 | GDS ---
[f rep st] DISCHARGE SUMMARY DISCHARGE DIAGNOSES: 1. Schizophrenia. 2. Asthma flare, presumed secondary to chlorine exposure. 3. Smoking. 4. Bipolar. HOSPITAL COURSE: Please see admission history and physical by Dr. Jhony Vale. Patient eugenio luna with increased work of breathing following cleaning a toilet with a chlorine-containing solvent. He had hypoxia. Per chest x-ray on presentation, he was without pneumonia or airspace disease. H e did have airway disease. He was started on Solu-Medrol, nebs, and doxycycline. He got a couple o f days of ceftriaxone. He had blood cultures, which have grown nothing. He has been afebrile here with the exception of 1 fever on the first evening. The patient is currently now on room air, received his last dose of steroids, and will complete a 5- day course of doxycycline. He has an albuterol inhaler at home, and I have prescribed Wellbutrin fo r smoking cessation. This has been cleared with his psychiatrist. I do note that his allergy list includes bupropion, also known as Wellbutrin. He received 3 days of doses while here without eviden ce of rash, which is his listed allergy. /[id number]/MODL
== END 2016-07-03 11:05 | disposition home or self-care (01) | DRG 202 ==
LOC: EDUNIT# → F3E 12:55
PROVIDERS: ADMIT Student in an Organized Health Care Education/Training Program; ATTEND Internal Medicine
DX: J45.901 Unspecified asthma with (acute) exacerbation (principal); J96.01 Acute respiratory failure with hypoxia; T59.4X1A Toxic effect of chlorine gas, accidental (unintentional), initial encounter; F17.210 Nicotine dependence, cigarettes, uncomplicated; F31.9 Bipolar disorder, unspecified; F20.9 Schizophrenia, unspecified; F41.9 Anxiety disorder, unspecified; I10 Essential (primary) hypertension
CPT/HCPCS: G0009; J0456; J0696; J2060

== ENCOUNTER 2016-10-19 18:07 | Emergency (ER) | payer OTHER, MEDICAID ==
--- NOTE | 2016-10-19 18:53 | CPEKG ---
Heart Rate: 94 RR Interval: 638 P-R Interval: 192 QRSD Interval: 100 QT Interval: 352 QTC Interval: 441 P [place]: 67 QRS [place]: 50 T Wave [place]: 32 EKG Severity - NORMAL ECG - EKG Impression: SINUS RHYTHM Electronically Signed By: Christopher Cao 19-Oct-2016 23:38:08
[2016-10-19] MEDS ORDERED: NS 1,000 ML IV ONE (18:54)
[2016-10-19] MEDS ORDERED: ACETAMINOPHEN 500 MG TAB PO ONE (18:55)
--- NOTE | 2016-10-19 19:14 | EDPHY ---
H & P Time Seen by Provider: 10/19/16 18:53 HPI/ROS: Chief complaint. Chest pain HPI. 31 year old male presents emergency department with chest tightness that began yesterday. He also noted his blood pressure was high at 170 3/93. This concerned him. He had little pressure in his head that was relieved by aspirin today. He had a fast heart rate of 120 today. No recent head injury. His chest tightness is not worse with breathing, exertion or position. Recent change from atenolol to Norvasc because of possible respiratory problems. ROS Constitutional. no fever/chills, no weakness Eyes. no problems with vision ENT. no sore throat, no nasal drainage Cardiovascular. Slight chest tightness and fast heart beat. Respiratory. no shortness of breath, no cough Abdominal. no abdominal pain, no nausea/vomiting, no diarrhea . no problems urinating MS. no calf pain/swelling, no neck/back pain, no joint pain Skin. no rash Lymph. no swollen glands Neuro. Headache earlier today Past Medical/Surgical History: Past medical history significant for bipolar, anxiety, OCD, schizophrenia Social History: Single, daily smoker, no alcohol Smoking Status: Heavy smoker Physical Exam: General Appearance: Alert well-developed male mild distress vital signs show initial heart rate of 113 an initial blood pressure 159/104 Eyes: Pupils equal and round no pallor or injection. ENT, Mouth: Mucous membranes are moist. Respiratory: There are no retractions, lungs are clear to auscultation. Cardiovascular: Regular rate and rhythm. Gastrointestinal: Abdomen is soft and nontender, no masses, bowel sounds normal. Neurological: Awake and alert, sensory and motor exams grossly normal. Skin: Warm and dry, no rashes. Musculoskeletal: Neck is supple nontender. Extremities symmetrical, full range of motion. Psychiatric: Patient is oriented X 3, there is no agitation. Constitutional: Initial Vital Signs Temperature (C) 37.1 C 10/19/16 18:14 Heart Rate 113 H 10/19/16 18:14 Respiratory Rate 14 10/19/16 18:14 Blood Pressure 159/104 H 10/19/16 18:14 O2 Sat (%) 94 10/19/16 18:14 O2 Delivery Mode Room Air Allergies/Adverse Reactions: bupropion HCl [From Wellbutrin] Allergy (Verified 06/30/16 10:26) Rash clozapine [From Clozaril] Allergy (Verified 06/30/16 10:26) Home Medications: Medication Instructions Recorded [place] Carbonate [[place] 1,200 mg PO DAILY 05/06/11 Carbonate Tab 300 mg (*)] OLANZAPINE [ZYPREXA 20 mg] 20 mg PO BID 05/06/11 Albuterol Hfa Anes Only [Proair 2 puffs IH TID 06/30/16 Hfa Icu (*)] Aspirin EC [Aspirin EC 325 mg (*)] 325 mg PO DAILY 06/30/16 Atenolol [Tenormin 100 mg (*)] 100 mg PO DAILY 06/30/16 Calcium Carbonate [Tums 500MG (*)] 1,000 mg PO QID PRN 06/30/16 Disulfiram [Antabuse 250 MG (*)] 250 mg PO DAILY 06/30/16 Herbals/Supplements -Info Only 1 ea PO DAILY 06/30/16 [place] Carbonate ER [Lithobid 300 900 mg PO HS 06/30/16 mg (*)] Multivitamins [Multivitamin (*)] 1 each PO DAILY 06/30/16 OXcarbazepine [Trileptal 300mg (*)] 600 mg PO BID 06/30/16 clonazePAM [klonoPIN (*)] 1 mg PO HS 06/30/16 clonazePAM [klonoPIN (*)] 2 mg PO DAILY 06/30/16 traZODone [traZODone 150MG (*)] 150 mg PO HS PRN 06/30/16 Doxycycline Hyclate 100 mg PO BID #6 tab 07/03/16 buPROPion SR [Wellbutrin 150mg SR 150 mg PO BID #60 tab 07/03/16 (*)] Medical Decision Making - Diagnostics EKG Interpretation: EKG interpreted by me shows a normal sinus rhythm with normal interval and axis. QRS is normal there is no significant ST elevation or depression. No arrhythmia. The rate is 94 Imaging Results: Imaging Impressions Chest X-Ray 10/19/16 18:55 Impression: No acute abnormality. Chest x-ray interpreted by me is normal Procedures: IV normal saline, monitor ED Course/Re-evaluation: Re-evaluation 855 pm--patient has no symptoms. Heart rate 85. Blood pressure 130 /70. Patient and I discussed laboratory EKG imaging study results. We discussed treatment plan including criteria for return and importance of follow-up and further evaluation. He expresses understanding and agreement. When he and I discussed his elevated white blood cell count and the fact that he has had this before he tells me yes that he that he always runs an elevated white blood cell count Differential Diagnosis: I considered arrhythmia, electrolyte abnormality, acute coronary syndrome, pulmonary embolus - Data Points Laboratory Results: Laboratory Results 10/19/16 19:11 10/19/16 19:11 10/19/16 10/19/16 10/19/16 19:11 19:11 19:11 WBC 19.88 10^3/uL H 10^3/uL (3.80-9.50) RBC 5.33 10^6/uL 10^6/uL (4.40-6.38) Hgb 15.2 g/dL g/dL (13.7-17.5) Hct 45.3 % % (40.0-51.0) MCV 85.0 fL fL (81.5-99.8) MCH 28.5 pg pg (27.9-34.1) MCHC 33.6 g/dL g/dL (32.4-36.7) RDW 13.5 % % (11.5-15.2) Plt Count 307 10^3/uL 10^3/uL (150-400) MPV 10.1 fL fL (8.7-11.7) Neut % (Auto) 72.3 % % (39.3-74.2) Lymph % (Auto) 18.1 % % (15.0-45.0) [place] % (Auto) 6.4 % % (4.5-13.0) Eos % (Auto) 1.6 % % (0.6-7.6) Baso % (Auto) 0.7 % % (0.3-1.7) Nucleat RBC Rel Count 0.0 % % (0.0-0.2) Absolute Neuts (auto) 14.37 10^3/uL H 10^3/uL (1.70-6.50) Absolute Lymphs (auto) 3.60 10^3/uL H 10^3/uL (1.00-3.00) Absolute Monos (auto) 1.28 10^3/uL H 10^3/uL (0.30-0.80) Absolute Eos (auto) 0.32 10^3/uL 10^3/uL (0.03-0.40) Absolute Basos (auto) 0.13 10^3/uL H 10^3/uL (0.02-0.10) Absolute Nucleated RBC 0.00 10^3/uL 10^3/uL (0-0.01) Immature Gran % 0.9 % % (0.0-1.1) Immature Gran # 0.18 10^3/uL H 10^3/uL (0.00-0.10) D-Dimer < 0.27 ug/mLFEU ug/mLFEU (0.00-0.50) Sodium 134 mEq/L mEq/L (134-144) Potassium 3.5 mEq/L mEq/L (3.5-5.2) Chloride 103 mEq/L mEq/L (97-110) Carbon Dioxide 20 mEq/l L mEq/l (22-31) Anion Gap 11 mEq/L mEq/L (8-16) BUN 10 mg/dL mg/dL (7-23) Creatinine 0.9 mg/dL mg/dL (0.7-1.3) Estimated GFR > 60 Glucose 81 mg/dL mg/dL (70-100) Calcium 9.3 mg/dL mg/dL (8.5-10.4) Troponin I < 0.012 ng/mL ng/mL (0.000-0.034) [place] 1.5 mEq/L H mEq/L (0.6-1.2) Medications Given: Discontinued Medications Acetaminophen (Tylenol) 1,000 mg PO EDNOW ONE Stop: 10/19/16 18:56 Last Admin: 10/19/16 19:17 Dose: 1,000 mg Sodium Chloride (Ns) 1,000 mls @ 0 mls/hr IV EDNOW ONE; Wide Open PRN Reason: Protocol Stop: 10/19/16 18:55 Last Admin: 10/19/16 19:16 Dose: 1,000 mls Departure - Departure Disposition: Home, Routine, Self-Care Clinical Impression: Hypertension Qualifiers: Hypertension type: essential hypertension Qualified Code(s): I10 - Essential ( primary) hypertension Condition: Good Instructions: Chronic Hypertension (ED) Additional Instructions: Continue regular medications. However your lithium level was somewhat elevated at 1.5 today. Normal range 1.2. As you 40 taking her lithium today hold for 1 or 2 days Friday and Friday. Return for worsening headache, chest discomfort, uncontrolled high blood pressure Referrals: Alexus Mendoza MD [Primary Care Provider] - 2-3 days, if not improved
[2016-10-19 19:21] LABS: % IMMATURE GRANULYOCYTES 0.9 % (0.0-1.1); ABSOLUTE IMMATURE GRANULOCYTES 0.18 10^3/uL (0.00-0.10); ADD DIFF? NO; ADD MORPH? NO; ADD SCAN? NO; ATYPICAL LYMPHOCYTE FLAG 0 (0-99); FRAGMENT RBC FLAG 0 (0-99); HEMATOCRIT 45.3 % (40.0-51.0); HEMOGLOBIN 15.2 g/dL (13.7-17.5); LEFT SHIFT FLG 0 (0-99); LIPEMIA HEMOLYSIS FLAG 80 (0-99); MEAN CELL HEMOGLOBIN 28.5 pg (27.9-34.1); MEAN CELL HEMOGLOBIN CONCENTR. 33.6 g/dL (32.4-36.7); MEAN PLATELET VOLUME 10.1 fL (8.7-11.7); PLATELET CLUMPS FLAG 0 (0-99); PLATELET COUNT 307 10^3/uL (150-400); RED BLOOD CELL COUNT 5.33 10^6/uL (4.40-6.38); RED CELL DISTRIBUTION WIDTH 13.5 % (11.5-15.2)
[2016-10-19 19:35] LABS: ANION GAP 11 mEq/L (8-16); CALCIUM 9.3 mg/dL (8.5-10.4); CARBON DIOXIDE 20 mEq/l (22-31); CHLORIDE 103 mEq/L (97-110); CREATININE 0.9 mg/dL (0.7-1.3); GLOMERULAR FILTRATION RATE > 60; GLUCOSE 81 mg/dL (70-100); LITHIUM 1.5 mEq/L (0.6-1.2); POTASSIUM 3.5 mEq/L (3.5-5.2); SODIUM 134 mEq/L (134-144)
[2016-10-19 19:46] LABS: TROPONIN I < 0.012 ng/mL (0.000-0.034)
[2016-10-19 20:25] VITALS: RESP 16
[2016-10-19 22:08] VITALS: BP 121/61; PULSE 78; TEMP 98.1; O2SAT 94
== END 2016-10-19 22:07 | disposition home or self-care (01) ==
DX: I10 Essential (primary) hypertension (principal); F17.200 Nicotine dependence, unspecified, uncomplicated; E86.9 Volume depletion, unspecified; Z79.82 Long term (current) use of aspirin

== ENCOUNTER 2017-04-14 00:29 | Emergency (ER) | payer OTHER, MEDICAID ==
[2017-04-14 00:37] VITALS: TEMP 98.6
--- NOTE | 2017-04-14 00:57 | EDPHY ---
H & P Stated Complaint: c/o L cp/L shoulder pain/cough x2 days HPI/ROS: HPI CHIEF COMPLAINT: Chest Pain. HISTORY OF PRESENT ILLNESS: This patient is a 31-year-old male, he has a history of schizoaffective disorder, asthma he presents emergency room left- sided chest discomfort with arm radiation. Patient reports to me that since 7: 00 a.m. yesterday he has had intermittent chest discomfort in the substernal region describes as a pressure sensation that radiates to his left arm. He denies nausea vomiting denies focal weakness numbness or tingling. Denies pleuritic pain. He does complain of some shortness of breath associated with this. He does smoke tobacco he is an avid smoker 2 packs per day. Patient reports to me it is not worse with exerts himself. Past Medical History: Schizophrenia, asthma, bipolar, hypertension, obesity Past Surgical History: Denies surgical history Social History: Smokes tobacco 2 packs per day denies alcohol or drugs. Family History: Denies cardiovascular risk factors mom dad sister brother. ROS REVIEW OF SYSTEMS: A comprehensive 10 point review of systems is otherwise negative aside from elements mentioned in the history of present illness. Exam Constitutional appears well nontoxic no acute distress, triage nursing summary reviewed, vital signs reviewed, awake/alert. Eyes normal conjunctivae and sclera, EOMI, PERRLA. HENT normal inspection, atraumatic, moist mucus membranes, no epistaxis, neck supple/ no meningismus, no raccoon eyes. Respiratory clear to auscultation bilaterally, normal breath sounds, no respiratory distress, no wheezing. Cardiovascular rate normal, regular rhythm, no murmur, no edema, distal pulses normal. Gastrointestinal soft, non-tender, no rebound, no guarding, normal bowel sounds, no distension, no pulsatile mass. Genitourinary no CVA tenderness. Musculoskeletal no midline vertebral tenderness, full range of motion, no calf swelling, no tenderness of extremities, no meningismus, good pulses, neurovascularly intact. Skin pink, warm, & dry, no rash, skin atraumatic. Neurologic awake, alert and oriented x 3, AAOx3, moves all 4 extremities equally, motor intact, sensory intact, CN II-XII intact, normal cerebellar, normal vision, normal speech. Psychiatric normal mood/affect. Heme/Lymph/Immune no lymphadenopathy. Differential diagnosis includes but is not limited to: ACS, atypical chest pain , pneumothorax, pneumonia, pulmonary embolism, aortic dissection, congestive heart failure, tumor, musculoskeletal pain, esophageal pain, GERD, peptic ulcer disease, pancreatitis Medical Decision Making: Plan for this patient IV establishment, obtain EKG, troponin, chest x-ray, full secured entrance monitor, rule out acute coronary syndrome Re-evaluation: EKG interpretation by me on record in [employer] system. Impression time of EKG 1:06 a.m., sinus rhythm rate of 64 first-degree AV block TX interval 220. I do not appreciate acute ischemic changes specifically no ST elevation no significant ST depression no significant T-wave abnormalities. Cardiovascular risk factors include: Extensive tobacco abuse 2 packs per day, hypertension, obesity, hyperlipidemia, typical chest pain story 0159: Patient re-evaluated this time. He states he is resting comfortably. He denies having any chest discomfort or arm discomfort at this time. Waiting on further blood work. [id number]: Spent a lengthy time discussing the patient's workup and his cardiac risk factors. Even though he is 31 years old he does tell me he has left-sided chest discomfort with radiation down his arm pressure sensation. It is now gone. He is troponin, D-dimer and EKG are unremarkable. I recommend that he gets admitted to the hospital however he is refusing hospital admission. The reason I recommended this is for further cardiovascular risk stratification and testing. I discussed this at length the patient however he has declined to stay. He wants to sign out against medical advice. He has capacity to do so. Understands the risks of leaving against medical advice. He is in fact agreeable to have a 2nd troponin EKG at the 4 hr ginger. However I still explained I would like to keep him overnight for stress test. He has declined will sign out against medical advice. I will refer him to Cardiology on outpatient basis. I do recommend strict lifestyle modifications which include I recommend he stop smoking 2 packs per day additionally lose weight. I do recommend that he follows up with Cardiology. Additionally recommend if he has worsening chest pain shortness of breath or does not feel well to return to the emergency room. I did spend a great deal time with him about this. He understands. EKG interpretation by me on record in [employer] system. Impression this is a repeat EKG time 4:53 a.m., sinus rhythm rate of 62. First-degree AV block seen again TX interval 228. Do not appreciate acute ischemic change no ST elevation no ST depression no significant T-wave abnormality. 2nd troponin negative. Encourage patient stay however he has declined. Signed out against medical advice. Source: Patient - Personal History Tetanus Vaccine Date: 2014 - Medical/Surgical History Hx Asthma: Yes Hx Chronic Respiratory Disease: No Hx Diabetes: No Hx Cardiac Disease: Yes Hx Renal Disease: No Hx Cirrhosis: No Hx Alcoholism: Yes Hx HIV/AIDS: No Hx Splenectomy or Spleen Trauma: No Other PMH: BIPOLAR, ANXIETY, OCD, SCHIZOPREHIA, R. ankle fx, L. lower extremity fx. pn, asthma, htn, gerd - Social History Smoking Status: Heavy smoker Constitutional: Initial Vital Signs Temperature (C) 37 C 04/14/17 00:33 Heart Rate 71 04/14/17 00:33 Respiratory Rate 16 04/14/17 00:33 Blood Pressure 161/81 H 04/14/17 00:33 O2 Sat (%) 95 04/14/17 00:33 O2 Delivery Mode Room Air Allergies/Adverse Reactions: bupropion HCl [From Wellbutrin] Allergy (Verified 04/14/17 00:38) Rash clozapine [From Clozaril] Allergy (Verified 04/14/17 00:38) Home Medications: Medication Instructions Recorded [place] Carbonate [[place] 1,200 mg PO DAILY 05/06/11 Carbonate Tab 300 mg (*)] OLANZAPINE [ZYPREXA 20 mg] 20 mg PO BID 05/06/11 Albuterol Hfa Anes Only [Proair 2 puffs IH TID 06/30/16 Hfa Icu (*)] Aspirin EC [Aspirin EC 325 mg (*)] 325 mg PO DAILY 06/30/16 Atenolol [Tenormin 100 mg (*)] 100 mg PO DAILY 06/30/16 Calcium Carbonate [Tums 500MG (*)] 1,000 mg PO QID PRN 06/30/16 Disulfiram [Antabuse 250 MG (*)] 250 mg PO DAILY 06/30/16 Herbals/Supplements -Info Only 1 ea PO DAILY 06/30/16 [place] Carbonate ER [Lithobid 300 900 mg PO HS 06/30/16 mg (*)] Multivitamins [Multivitamin (*)] 1 each PO DAILY 06/30/16 OXcarbazepine [Trileptal 300mg (*)] 600 mg PO BID 06/30/16 clonazePAM [klonoPIN (*)] 1 mg PO HS 06/30/16 clonazePAM [klonoPIN (*)] 2 mg PO DAILY 06/30/16 traZODone [traZODone 150MG (*)] 150 mg PO HS PRN 06/30/16 [place] 04/14/17 Medical Decision Making - Data Points Laboratory Results: Laboratory Results 04/14/17 01:05 04/14/17 01:05 04/14/17 04/14/17 04/14/17 04:45 01:30 01:05 WBC RBC Hgb Hct MCV MCH MCHC RDW Plt Count MPV Neut % (Auto) Lymph % (Auto) [place] % (Auto) Eos % (Auto) Baso % (Auto) Nucleat RBC Rel Count Absolute Neuts (auto) Absolute Lymphs (auto) Absolute Monos (auto) Absolute Eos (auto) Absolute Basos (auto) Absolute Nucleated RBC Immature Gran % Immature Gran # PT INR APTT D-Dimer Sodium 133 mEq/L L mEq/L (135-145) Potassium 3.7 mEq/L mEq/L (3.5-5.2) Chloride 99 mEq/L mEq/L (97-110) Carbon Dioxide 24 mEq/l mEq/l (22-31) Anion Gap 10 mEq/L mEq/L (8-16) BUN 10 mg/dL mg/dL (7-23) Creatinine 0.9 mg/dL mg/dL (0.7-1.3) Estimated GFR > 60 Glucose 93 mg/dL mg/dL (70-100) Calcium 9.9 mg/dL mg/dL (8.5-10.4) Magnesium 1.7 mg/dL mg/dL (1.6-2.3) Total Bilirubin 0.3 mg/dL mg/dL (0.1-1.4) Conjugated Bilirubin 0.2 mg/dL mg/dL (0.0-0.5) Unconjugated Bilirubin 0.1 mg/dL mg/dL (0.0-1.1) AST 28 IU/L IU/L (17-59) ALT 60 IU/L IU/L (21-72) Alkaline Phosphatase 62 IU/L IU/L (38-126) Creatine Kinase 166 IU/L IU/L (0-224) CK-MB (CK-2) Fraction 0.71 ng/mL ng/mL (0.00-3.19) Troponin I < 0.012 ng/mL ng/mL < 0.012 ng/mL ng/mL (0.000-0.034) (0.000-0.034) NT-Pro-B Natriuret Pep 130 pg/mL H pg/mL (0-125) Total Protein 6.2 g/dL L g/dL (6.3-8.2) Albumin 3.8 g/dL g/dL (3.5-5.0) Lipase 133 IU/L IU/L (23-300) Nasal Influenza A PCR Nasal Influenza B PCR Urine Opiates Screen NEGATIVE (NEGATIVE) Urine Barbiturates NEGATIVE (NEGATIVE) Ur Phencyclidine Scrn NEGATIVE (NEGATIVE) Ur Amphetamine Screen NEGATIVE (NEGATIVE) U Benzodiazepines Scrn NEGATIVE (NEGATIVE) Urine Cocaine Screen NEGATIVE (NEGATIVE) U Marijuana (THC) Screen NEGATIVE (NEGATIVE) RSV (PCR) 04/14/17 04/14/17 04/14/17 01:05 01:05 01:00 WBC 17.64 10^3/uL H 10^3/uL (3.80-9.50) RBC 4.97 10^6/uL 10^6/uL (4.40-6.38) Hgb 15.2 g/dL g/dL (13.7-17.5) Hct 43.2 % % (40.0-51.0) MCV 86.9 fL fL (81.5-99.8) MCH 30.6 pg pg (27.9-34.1) MCHC 35.2 g/dL g/dL (32.4-36.7) RDW 12.9 % % (11.5-15.2) Plt Count 263 10^3/uL 10^3/uL (150-400) MPV 9.4 fL fL (8.7-11.7) Neut % (Auto) 66.5 % % (39.3-74.2) Lymph % (Auto) 21.7 % % (15.0-45.0) [place] % (Auto) 7.7 % % (4.5-13.0) Eos % (Auto) 2.4 % % (0.6-7.6) Baso % (Auto) 0.6 % % (0.3-1.7) Nucleat RBC Rel Count 0.0 % % (0.0-0.2) Absolute Neuts (auto) 11.74 10^3/uL H 10^3/uL (1.70-6.50) Absolute Lymphs (auto) 3.83 10^3/uL H 10^3/uL (1.00-3.00) Absolute Monos (auto) 1.35 10^3/uL H 10^3/uL (0.30-0.80) Absolute Eos (auto) 0.42 10^3/uL H 10^3/uL (0.03-0.40) Absolute Basos (auto) 0.11 10^3/uL H 10^3/uL (0.02-0.10) Absolute Nucleated RBC 0.00 10^3/uL 10^3/uL (0-0.01) Immature Gran % 1.1 % % (0.0-1.1) Immature Gran # 0.19 10^3/uL H 10^3/uL (0.00-0.10) PT 12.6 SEC SEC (12.0-15.0) INR 0.92 (0.83-1.16) APTT 31.0 SEC SEC (23.0-38.0) D-Dimer < 0.27 ug/mLFEU ug/mLFEU (0.00-0.50) Sodium Potassium Chloride Carbon Dioxide Anion Gap BUN Creatinine Estimated GFR Glucose Calcium Magnesium Total Bilirubin Conjugated Bilirubin Unconjugated Bilirubin AST ALT Alkaline Phosphatase Creatine Kinase CK-MB (CK-2) Fraction Troponin I NT-Pro-B Natriuret Pep Total Protein Albumin Lipase Nasal Influenza A PCR NEGATIVE FOR FLU A (NEGATIVE) Nasal Influenza B PCR NEGATIVE FOR FLU B (NEGATIVE) Urine Opiates Screen Urine Barbiturates Ur Phencyclidine Scrn Ur Amphetamine Screen U Benzodiazepines Scrn Urine Cocaine Screen U Marijuana (THC) Screen RSV (PCR) NEGATIVE FOR RSV (NEGATIVE) Medications Given: Discontinued Medications Al Hydroxide/Mg Hydroxide (Maalox Susp) 30 ml PO ONCE ONE Stop: 04/14/17 01:04 Last Admin: 04/14/17 01:15 Dose: 30 ml Hyoscyamine Sulfate (Levsin, Hyomax-Sl) 0.25 mg PO ONCE ONE Stop: 04/14/17 01:04 Last Admin: 04/14/17 01:15 Dose: 0.25 mg Sodium Chloride (Ns) 1,000 mls @ 0 mls/hr IV EDNOW ONE; Wide Open PRN Reason: Protocol Stop: 04/14/17 01:04 Last Admin: 04/14/17 01:14 Dose: 1,000 mls Lidocaine (Lidocaine 2% Viscous) 15 ml PO ONCE ONE Stop: 04/14/17 01:04 Last Admin: 04/14/17 01:15 Dose: 15 ml Departure - Departure Disposition: Against Medical Advice Clinical Impression: Chest pain Qualifiers: Chest pain type: unspecified Qualified Code(s): R07.9 - Chest pain, unspecified Condition: Fair Instructions: Chest Pain (ED) Additional Instructions: 1. Return emergency room if you have worsening symptoms includes worsening chest pain, shortness of breath. 2. I do recommend he stop smoking cigarettes. 3. Follow up with Cardiology. Please call their make a follow-up appointment. 4. Return if you have worsening symptoms questions or concerns. Referrals: Alexus Mendoza MD [Primary Care Provider] - As per Instructions Satnam Navarro MD [Medical Doctor] - As per Instructions
[2017-04-14] MEDS ORDERED: MAG HYDROX/AL HYDROX/SIMETH 30 ML UDCUP PO ONE (01:03)
[2017-04-14] MEDS ORDERED: NS 1,000 ML IV ONE (01:03)
[2017-04-14] MEDS ORDERED: HYOSCYAMINE SULFATE 0.125 MG TAB PO ONE (01:03)
[2017-04-14] MEDS ORDERED: LIDOCAINE 2% VISCOUS 15 ML UDCUP PO ONE (01:03)
[2017-04-14 01:08] LABS: PLATELET COUNT 263 10^3/uL (150-400)
[2017-04-14 01:22] LABS: CREATINE KINASE 166 IU/L (0-224)
[2017-04-14 01:58] LABS: INR 0.92 (0.83-1.16); PROTIME(PATIENT) 12.6 SEC (12.0-15.0)
--- NOTE | 2017-04-14 04:54 | CPEKG ---
Heart Rate: 62 RR Interval: 968 P-R Interval: 228 QRSD Interval: 108 QT Interval: 432 QTC Interval: 439 P [place]: 60 QRS [place]: 56 T Wave [place]: 50 EKG Severity - ABNORMAL ECG - EKG Impression: SINUS RHYTHM EKG Impression: FIRST DEGREE AV BLOCK Electronically Signed By: Marino Lucia 14-Apr-2017 06:40:05
[2017-04-14 06:03] VITALS: BP 140/85; PULSE 84; RESP 16; O2SAT 96
--- NOTE | 2017-04-14 11:11 | CPEKG ---
Heart Rate: 64 RR Interval: 938 P-R Interval: 220 QRSD Interval: 106 QT Interval: 404 QTC Interval: 417 P [place]: 55 QRS [place]: 50 T Wave [place]: 49 EKG Severity - ABNORMAL ECG - EKG Impression: SINUS RHYTHM EKG Impression: FIRST DEGREE AV BLOCK Electronically Signed By: Lincoln Lehman 16-Apr-2017 10:43:09
== END 2017-04-14 06:03 | disposition left against medical advice (07) ==
DX: R07.9 Chest pain, unspecified (principal); I10 Essential (primary) hypertension; J45.909 Unspecified asthma, uncomplicated; F17.200 Nicotine dependence, unspecified, uncomplicated; E86.9 Volume depletion, unspecified; Z79.82 Long term (current) use of aspirin
CPT/HCPCS: 80305

== ENCOUNTER 2017-09-27 02:55 | Emergency (ER) | payer OTHER, MEDICAID ==
--- NOTE | 2017-09-27 03:06 | CPEKG ---
Heart Rate: 65 RR Interval: 923 P-R Interval: 212 QRSD Interval: 100 QT Interval: 408 QTC Interval: 425 P [place]: 34 QRS [place]: 39 T Wave [place]: 40 EKG Severity - ABNORMAL ECG - EKG Impression: SINUS RHYTHM EKG Impression: FIRST DEGREE AV BLOCK Electronically Signed By: Babatunde Comer 27-Sep-2017 06:26:52
--- NOTE | 2017-09-27 03:33 | EDPHY ---
H & P Stated Complaint: Took 10 clonzpem to "get some sleep", chest pain Time Seen by Provider: 09/27/17 03:01 HPI/ROS: Chief Complaint: Chest pain, difficulty sleeping HPI: 32-year-old male began developing chest pain this morning after he became concerned that he had taken too much Klonopin. Patient states that he took 3 Klonopin yesterday morning into in the afternoon. He was unable to sleep this morning so he took an additional 5 tablets of Klonopin. After taking them he felt a little tightness in his chest because became worried that this may have been too much. He denies being suicidal. He states that he is just trying to sleep. He feels like he is agitating his roommate by not being able to sleep. He is mary for safety. Symptoms have since resolved. No fevers or chills. No cough. No nausea or vomiting. ROS: 10 point Review of Systems is negative except as noted in the HPI. Social History: Positive smoking, no alcohol Family History: non-contributory Physical Exam: Gen: Awake, Alert, No Distress HEENT: Nose: no rhinorrhea Eyes: PERRLA, EOMI Mouth: Moist mucosa Neck: Supple, no JVD Chest: nontender, lungs clear to auscultation Heart: S1, S2 normal, no murmur Abd: Soft, non-tender, no guarding Back: no CVA tenderness, no midline tenderness Ext: no edema, non-tender Skin: no rash Neuro: CN II-XII intact, Sensation grossly intact, Strength 5/5 in bilateral upper and lower extremities - Personal History Current Tetanus Diphtheria and Acellular Pertussis (TDAP): Yes Tetanus Vaccine Date: 2014 - Medical/Surgical History Hx Asthma: Yes Hx Chronic Respiratory Disease: No Hx Diabetes: No Hx Cardiac Disease: Yes Hx Renal Disease: No Hx Cirrhosis: No Hx Alcoholism: Yes Hx HIV/AIDS: No Hx Splenectomy or Spleen Trauma: No Other PMH: BIPOLAR, ANXIETY, OCD, SCHIZOPREHIA, R. ankle fx, L. lower extremity fx. pn, asthma, htn, gerd - Social History Smoking Status: Heavy smoker Constitutional: Initial Vital Signs Temperature (C) 36.6 C 09/27/17 03:00 Heart Rate 65 09/27/17 03:00 Respiratory Rate 19 09/27/17 03:00 Blood Pressure 132/63 H 09/27/17 03:00 O2 Sat (%) 94 09/27/17 03:00 O2 Delivery Mode Room Air Allergies/Adverse Reactions: bupropion HCl [From Wellbutrin] Allergy (Verified 09/27/17 03:03) Rash clozapine [From Clozaril] Allergy (Verified 09/27/17 03:03) Home Medications: Medication Instructions Recorded [facility] [facility] Carbonate [[place] 1,200 mg PO DAILY 05/06/11 Carbonate Tab 300 mg (*)] OLANZAPINE [ZYPREXA 20 mg] 20 mg PO BID 05/06/11 Albuterol Hfa Anes Only [Proair 2 puffs IH TID 06/30/16 Hfa Icu (*)] Aspirin EC [Aspirin EC 325 mg (*)] 325 mg PO DAILY 06/30/16 Atenolol [Tenormin 100 mg (*)] 100 mg PO DAILY 06/30/16 Calcium Carbonate [Tums 500MG (*)] 1,000 mg PO QID PRN 06/30/16 Disulfiram [Antabuse 250 MG (*)] 250 mg PO DAILY 06/30/16 Herbals/Supplements -Info Only 1 ea PO DAILY 06/30/16 [place] Carbonate ER [Lithobid 300 900 mg PO HS 06/30/16 mg (*)] Multivitamins [Multivitamin (*)] 1 each PO DAILY 06/30/16 OXcarbazepine [Trileptal 300mg (*)] 600 mg PO BID 06/30/16 clonazePAM [klonoPIN (*)] 1 mg PO HS 06/30/16 clonazePAM [klonoPIN (*)] 2 mg PO DAILY 06/30/16 traZODone [traZODone 150MG (*)] 150 mg PO HS PRN 06/30/16 Latuda 04/14/17 Medical Decision Making - Diagnostics EKG Interpretation: ECG time 3:03 a.m., sinus rhythm with a rate of 65, first-degree AV block, normal axis, no acute ST or T-wave changes. ECG is unchanged compared to 2017 ED Course/Re-evaluation: Patient has been observed in the emergency department. He has been awake alert in conversant entire time. His chest pain has resolved. ECG and troponin are unremarkable. Symptoms consisting with of an anxiety reaction after being concerned about the medications he took. At status is significant benzodiazepine ingestion at this time. Plan will be discharged with instructions to take his medications as prescribed, follow up with primary care physician. - Data Points Laboratory Results: 09/27/17 03:17 POC Troponin I 0.00 ng/mL ng/mL (0.00-0.08) Point of Care Test Results: Chemistry 09/27/17 03:17 POC Troponin I 0.00 ng/mL ng/mL (0.00-0.08) Departure - Departure Disposition: Home, Routine, Self-Care Clinical Impression: Chest pain Condition: Good Instructions: Chest Pain (ED) Additional Instructions: Make sure to only take her medications as prescribed. Follow up with primary care physician in 2-3 days for further evaluation. Return to the emergency depart for worsening chest pain, shortness of breath, fevers, chills, or any other concerns. Referrals: Alexus Mendoza MD [Primary Care Provider] - As per Instructions
[2017-09-27 05:35] VITALS: BP 122/68
== END 2017-09-27 05:35 | disposition home or self-care (01) ==
LOC: EDUNIT#
DX: R07.9 Chest pain, unspecified (principal); I10 Essential (primary) hypertension; J45.909 Unspecified asthma, uncomplicated; F17.200 Nicotine dependence, unspecified, uncomplicated; Z79.82 Long term (current) use of aspirin
CPT/HCPCS: 84484-PO

== ENCOUNTER 2018-04-09 20:39 | Emergency (ER) | payer OTHER ==
--- NOTE | 2018-04-09 21:11 | EDPHY ---
H & P Time Seen by Provider: 04/09/18 20:50 HPI/ROS: HPI Headache. 32-year-old male on foot. This patient reports a gradual onset headache starting 12 days ago. He describes it as frontal. He reports for the last couple of days he has had some blurring of his vision. He states that he does not get headaches. He states that at this time his vision is fine. He reports also that he takes atenolol, 100 mg daily, for hypertension. He reports that accidentally he took an extra 100 g tablets of atenolol tonight. He has not had any neck pain. Denies any fever. There is no history of trauma. ROS: Constitutional: No fever, no chills. No weakness. Eyes: No discharge. As above. ENT: No sore throat. No nasal congestion or rhinorrhea. Respiratory: No cough. No shortness of breath. Cardiac: No chest pain, no palpitations. Gastrointestinal: No abdominal pain, no vomiting, no diarrhea. Genitourinary: No hematuria. No dysuria or increased frequency with urination. Musculoskeletal: No back pain. No neck pain. No myalgias or arthralgias. Skin: No rashes. Neurological: As above. No focal weakness or altered sensation. Past medical history: Bipolar, schizophrenia, OCD, GERD, hypertension, asthma. Social history: Heavy smoker. No alcohol. Here by himself. Physical Exam: General Appearance: Alert, he is not in distress. This patient is responding to questions appropriately and in full sentences. This patient appears well- hydrated and well-nourished. Eyes: Pupils equal and round no pallor or injection. No lid edema, erythema or injection. No photophobia. No nystagmus. Respiratory: There are no retractions, lungs are clear to auscultation with good air movement bilaterally. Cardiovascular: Regular rate and rhythm. No murmur. Gastrointestinal: Abdomen is soft and nontender, no masses, bowel sounds normal. No focal tenderness at McBurney's point. No Tiwari sign. Neurological: Motor sensory function is grossly intact. Cranial nerves are normal. Gait is normal. Skin: Warm and dry, no rashes. Musculoskeletal: Neck is supple and nontender. No pain on flexion of his neck. Extremities are symmetrical. All joints range without pain or impingement. Psychiatric: No agitation. No depression. Database: EKG: Imaging: CT head without contrast: Negative. Results were discussed with staff radiologist Dr. Babatunde Garcia. Procedures: Emergency department course: Triage vital signs reviewed. He is hypertensive. Vital signs are otherwise normal. He declines an IV or pain medication. He is very adamant about CT imaging for his head. I explained the clinically it did not think he needed this study. He told me he would come back to the emergency department tomorrow or go to a different emergency department to get this to he test. I discussed the risks of radiation exposure. He understands these risks in my professional opinion. CT head without contrast ordered. 9:40 p.m., the patient was re-evaluated, resting comfortably at this time. Repeat neurologic Assessment is nonfocal. He was up to the bathroom and with a normal gait. He currently denies any visual changes. He states that his headache has resolved. Results of his CT scan discussed with him. He is now requesting discharge. He states that he feels much better. He declines any further emergency department treatment or evaluation. His neck is supple. There is no pain on flexion of his neck. Follow-up and return to emergency department precautions have been reviewed with him. All of his questions were answered. He was discharged from the emergency department in good condition. Differential Diagnosis: The differential diagnosis on this patient includes but is not limited to tension headache, migraine headache syndrome. Idiopathic intracranial hypertension, subarachnoid hemorrhage, meningitis, encephalitis, intracranial mass, sagittal sinus thrombosis unlikely. This represents a partial list of diagnoses considered. These considerations are based on history, physical exam , past history, reassessment and diagnostic testing. Smoking Status: Heavy smoker Constitutional: Initial Vital Signs Temperature (C) 37.1 C 04/09/18 20:42 Heart Rate 71 04/09/18 20:42 Respiratory Rate 20 04/09/18 20:42 Blood Pressure 161/80 H 04/09/18 20:42 O2 Sat (%) 96 04/09/18 20:42 O2 Delivery Mode Room Air Allergies/Adverse Reactions: bupropion HCl [From Wellbutrin] Allergy (Verified 04/09/18 20:40) Rash clozapine [From Clozaril] Allergy (Verified 04/09/18 20:40) Home Medications: Medication Instructions Recorded [place] Carbonate [[place] 1,200 mg PO DAILY 03/05/12 Carbonate Tab 300 mg (*)] OLANZAPINE [ZYPREXA 20 mg] 20 mg PO BID 05/06/11 Albuterol Hfa Anes Only [Proair 2 puffs IH TID 06/30/16 Hfa Icu (*)] Aspirin EC [Aspirin EC 325 mg (*)] 325 mg PO DAILY 06/30/16 Atenolol [Tenormin 100 mg (*)] 100 mg PO DAILY 06/30/16 Disulfiram [Antabuse 250 MG (*)] 250 mg PO DAILY 06/30/16 Herbals/Supplements -Info Only 1 ea PO DAILY 06/30/16 [place] Carbonate ER [Lithobid 300 900 mg PO HS 06/30/16 mg (*)] Multivitamins [Multivitamin (*)] 1 each PO DAILY 06/30/16 OXcarbazepine [Trileptal 300mg (*)] 600 mg PO BID 06/30/16 clonazePAM [klonoPIN (*)] 1 mg PO HS 06/30/16 clonazePAM [klonoPIN (*)] 2 mg PO DAILY 06/30/16 Latuda 04/14/17 Departure - Departure Disposition: Home, Routine, Self-Care Clinical Impression: Headache Condition: Good Instructions: Acute Headache (ED) Additional Instructions: Read and follow provided instructions. Follow-up with your primary care physician in 1-2 days for re-evaluation as discussed. Take your medication as prescribed only. Return to the emergency department for worsening headache, visual changes, neck pain, fever, confusion, vomiting or other serious concerns. Referrals: Alexus Mendoza MD [Primary Care Provider] - As per Instructions
[2018-04-09 21:55] VITALS: BP 138/79
== END 2018-04-09 21:54 | disposition home or self-care (01) ==
DX: R51 Headache (principal); I10 Essential (primary) hypertension; F31.9 Bipolar disorder, unspecified; F20.9 Schizophrenia, unspecified; K21.9 Gastro-esophageal reflux disease without esophagitis; F17.200 Nicotine dependence, unspecified, uncomplicated